=== PATIENT | female | born 1990 | race American Indian/Alaskan Native ===

== ENCOUNTER 2018-03-21 01:25 | Emergency (ER) | payer OTHER ==
[2018-03-21 01:30] VITALS: BP 161/95
[2018-03-21] MEDS ORDERED: NACL 0.9% 1000 ML 1,000 ML IV ONE (01:34)
[2018-03-21 02:05] LABS: Hematocrit 39.3 % (30.3-42.9); Hemoglobin 13.3 gm/dl (10.1-14.3); Mean Corpuscular Volume 90 fl (79-97); Red Blood Count 4.36 M/mm3 (3.65-5.03)
[2018-03-21 02:06] LABS: Basophils # (Auto) 0.1 K/mm3 (0.0-0.1); Basophils % (Auto) 0.6 % (0.0-1.8); Eosinophils % (Auto) 0.3 % (0.0-4.3); Lymphocytes # (Auto) 1.3 K/mm3 (1.2-5.4); Lymphocytes % (Auto) 13.5 % (13.4-35.0); Mean Corpuscular HGB Conc 34 % (30-34); Mean Corpuscular Hemoglobin 30 pg (28-32); Mean Platelet Volume 8.6 fl (6-12); Monocytes # (Auto) 0.8 K/mm3 (0.0-0.8); Monocytes % (Auto) 8.4 % (0.0-7.3); Platelet Count 263 K/mm3 (140-440)
[2018-03-21 02:07] LABS: Alanine Aminotransferase 23 units/L (7-56); Albumin 4.3 g/dL (3.9-5); BUN/Creatinine Ratio 17; Blood Urea Nitrogen 12 mg/dL (7-17); Calcium 9.4 mg/dL (8.4-10.2); Hemolysis Index 0
[2018-03-21 03:39] LABS: Bilirubin,Urine Negative (Negative); Color,Urine Yellow (Yellow)
[2018-03-21 03:40] LABS: Blood,Urine Negative (Negative); Urobilinogen,Urine < 2.0 mg/dL (<2.0)
[2018-03-21 03:41] LABS: HCG Qualitative,Urine Negative (Negative); Mucus,Urine 2+ /HPF
--- NOTE | 2018-03-21 06:33 | Emergency Department Report ---
ED Abdominal Pain HPI - General Chief Complaint: Abdominal Pain Stated Complaint: ABD PAIN Time Seen by Provider: 03/21/18 06:32 Source: patient Mode of arrival: Ambulatory Limitations: No Limitations - Related Data Allergies Allergy/AdvReac Type Severity Reaction Status Date / Time No Known Allergies Allergy Verified 03/21/18 01:32 ED Review of Systems ROS: Stated complaint: ABD PAIN Other details as noted in HPI ED Past Medical Hx - Past Medical History Previous Medical History?: Yes - Surgical History Past Surgical History?: Yes Hx Cholecystectomy: Yes - Social History Smoking Status: Never Smoker Substance Use Type: Alcohol ED Physical Exam - General Limitations: No Limitations ED Course Vital Signs 03/21/18 03/21/18 01:23 04:52 Temperature 97.6 F Pulse Rate 95 H Respiratory 20 20 Rate Blood Pressure 161/95 O2 Sat by Pulse 100 100 Oximetry ED Medical Decision Making - Lab Data Result diagrams: 03/21/18 01:37 03/21/18 01:37 Laboratory Results - last 24 hr 03/21/18 03/21/18 03/21/18 01:37 01:37 Unknown WBC 9.6 RBC 4.36 Hgb 13.3 Hct 39.3 MCV 90 MCH 30 MCHC 34 RDW 14.0 Plt Count 263 Lymph % (Auto) 13.5 [place] % (Auto) 8.4 H Eos % (Auto) 0.3 Baso % (Auto) 0.6 Lymph # 1.3 [place] # 0.8 Eos # 0.0 Baso # 0.1 Seg Neutrophils % 77.2 H Seg Neutrophils # 7.4 Sodium 140 Potassium 4.1 Chloride 100.8 Carbon Dioxide 26 Anion Gap 17 BUN 12 Creatinine 0.7 Estimated GFR > 60 BUN/Creatinine Ratio 17 Glucose 143 H Calcium 9.4 Total Bilirubin 0.40 AST 23 ALT 23 Alkaline Phosphatase 67 Total Protein 8.0 Albumin 4.3 Albumin/Globulin Ratio 1.2 Urine Color Yellow Urine Turbidity Clear Urine pH 6.[address] [place] 1.025 Urine Protein 30 mg/dl Urine Glucose (UA) Negative Urine Ketones Negative Urine Blood Negative Urine Nitrite Negative Urine Bilirubin Negative Urine Urobilinogen < 2.0 Ur Leukocyte Esterase Negative Urine WBC (Auto) 3.0 Urine RBC (Auto) 2.0 U Epithel Cells (Auto) 2.0 Urine Mucus 2+ Urine HCG, Qual Negative Critical care attestation.: If time is entered above; I have spent that time in minutes in the direct care of this critically ill patient, excluding procedure time. ED Disposition Condition: Stable Instructions: Abdominal Pain (ED) Referrals: PRIMARY CARE, [Primary Care Provider] - 3-5 Days
--- NOTE | 2018-03-21 15:59 | Emergency Department Report ---
ED General Adult HPI - General Chief complaint: Abdominal Pain Stated complaint: ABD PAIN Time Seen by Provider: 03/21/18 06:32 Source: patient Mode of arrival: Ambulatory Limitations: No Limitations - History of Present Illness Initial comments: T -: minutes(s) Location: abdomen Radiation: non-radiation Quality: aching Consistency: now resolved Improves with: none Worsens with: none Associated Symptoms: denies other symptoms - Related Data Allergies Allergy/AdvReac Type Severity Reaction Status Date / Time No Known Allergies Allergy Verified 03/21/18 01:32 ED Review of Systems ROS: Stated complaint: ABD PAIN Other details as noted in HPI Constitutional: denies: chills, fever Eyes: denies: eye pain, eye discharge, vision change ENT: denies: ear pain, throat pain Respiratory: denies: cough, shortness of breath, wheezing Cardiovascular: denies: chest pain, palpitations Endocrine: no symptoms reported Gastrointestinal: abdominal pain. denies: nausea, diarrhea Genitourinary: denies: urgency, dysuria, discharge Musculoskeletal: denies: back pain, joint swelling, arthralgia Skin: denies: rash, lesions Neurological: denies: headache, weakness, paresthesias Psychiatric: denies: anxiety, depression Hematological/Lymphatic: denies: easy bleeding, easy bruising ED Past Medical Hx - Past Medical History Previous Medical History?: Yes - Surgical History Past Surgical History?: Yes Hx Cholecystectomy: Yes - Social History Smoking Status: Never Smoker Substance Use Type: Alcohol ED Physical Exam - General Limitations: No Limitations General appearance: alert, in no apparent distress - Head Head exam: Present: atraumatic, normocephalic - Eye Eye exam: Present: normal appearance - ENT ENT exam: Present: mucous membranes moist - Neck Neck exam: Present: normal inspection - Respiratory Respiratory exam: Present: normal lung sounds bilaterally. Absent: respiratory distress - Cardiovascular Cardiovascular Exam: Present: regular rate, normal rhythm. Absent: systolic murmur, diastolic murmur, rubs, gallop - GI/Abdominal GI/Abdominal exam: Present: soft, normal bowel sounds, organomegaly (uterus consistent with dates). Absent: distended, tenderness, guarding, rebound, rigid - Extremities Exam Extremities exam: Present: normal inspection - Back Exam Back exam: Present: normal inspection - Neurological Exam Neurological exam: Present: alert, oriented X3 - Psychiatric Psychiatric exam: Present: normal affect, normal mood - Skin Skin exam: Present: warm, dry, intact, normal color. Absent: rash ED Course Vital Signs 03/21/18 03/21/18 01:23 04:52 Temperature 97.6 F Pulse Rate 95 H Respiratory 20 20 Rate Blood Pressure 161/95 O2 Sat by Pulse 100 100 Oximetry - Reevaluation(s) Reevaluation #1: The patient had no significant complaint in the emergency department. She was ultimately discharged to follow up with OB/assisted physician. 03/21/18 15:57 ED Medical Decision Making - Lab Data Result diagrams: 03/21/18 01:37 03/21/18 01:37 Laboratory Results - last 24 hr 03/21/18 03/21/18 03/21/18 01:37 01:37 Unknown WBC 9.6 RBC 4.36 Hgb 13.3 Hct 39.3 MCV 90 MCH 30 MCHC 34 RDW 14.0 Plt Count 263 Lymph % (Auto) 13.5 [place] % (Auto) 8.4 H Eos % (Auto) 0.3 Baso % (Auto) 0.6 Lymph # 1.3 [place] # 0.8 Eos # 0.0 Baso # 0.1 Seg Neutrophils % 77.2 H Seg Neutrophils # 7.4 Sodium 140 Potassium 4.1 Chloride 100.8 Carbon Dioxide 26 Anion Gap 17 BUN 12 Creatinine 0.7 Estimated GFR > 60 BUN/Creatinine Ratio 17 Glucose 143 H Calcium 9.4 Total Bilirubin 0.40 AST 23 ALT 23 Alkaline Phosphatase 67 Total Protein 8.0 Albumin 4.3 Albumin/Globulin Ratio 1.2 Urine Color Yellow Urine Turbidity Clear Urine pH 6.0 Ur Specific [place] 1.025 Urine Protein 30 mg/dl Urine Glucose (UA) Negative Urine Ketones Negative Urine Blood Negative Urine Nitrite Negative Urine Bilirubin Negative Urine Urobilinogen < 2.0 Ur Leukocyte Esterase Negative Urine WBC (Auto) 3.0 Urine RBC (Auto) 2.0 U Epithel Cells (Auto) 2.0 Urine Mucus 2+ Urine HCG, Qual Negative - Radiology Data Radiology results: report reviewed Critical care attestation.: If time is entered above; I have spent that time in minutes in the direct care of this critically ill patient, excluding procedure time. ED Disposition Disposition: ELOPED Condition: Stable Instructions: Abdominal Pain (ED) Referrals: PRIMARY CARE, [Primary Care Provider] - 3-5 Days
--- NOTE | 2018-03-21 16:00 | Emergency Department Report ---
Blank Doc - Documentation Documentation: This is a 27-year-old female that presented to the emergency department with abdominal pain. She declined to be evaluated prior to my encounter. She was discharged AMA. He was not seen by physician.
== END 2018-03-21 06:54 | disposition left against medical advice (07) ==
LOC: ED 01:25
DX: R10.9 Unspecified abdominal pain (principal); Z90.49 Acquired absence of other specified parts of digestive tract
CPT/HCPCS: 36415; 80053; 81001; 81025; 85025; 96360; 96361; 99283; J7030